=== PATIENT | female | born 1985 | race Two or more races ===

== ENCOUNTER 2021-02-01 10:41 | Day surgery (SDC) | payer OTHER ==
[~2021-02-01] VITALS: Ht 162.6 cm; Wt 63.6 kg
[~2021-02-01 10:41] MED LIST: ALBU90OI INH; AMOX500 PO; AZIT250 PO; Bactrim Ds Tab1 EACH PO; Cleocin HCl150 MG PO; Cleocin HCl300 MG PO; HYDACE5 PO; HYDGUAL120 PO; Norco 5-325 Ta1 EACH PO; ONDA4 PO; PROM25 PO; RXLORA1 PO; TRAM50 PO
--- NOTE | 2021-02-01 11:13 | NUR ---
PT ESCORTED INTO SDS VIA WC. History, Chart, Medications and Allergies reviewed before start of procedure. Lungs clear T/O to Auscultation. Patient confirms NPO status and agrees with scheduled surgery. Pre-Op teaching done. Pt verbalizes understanding. Patient States Post-Procedure ride home has been arranged.
--- NOTE | 2021-02-01 14:58 | NUR ---
Dressing to procedure site clean, dry, intact with no visible drainage, swelling, erythema or bruising noted.
--- NOTE | 2021-02-01 15:14 | NUR ---
Dressing to procedure site clean, dry, intact with no visible drainage, swelling, erythema or bruising noted. Discharge instructions reviewed with patient. Patient verbalizes understanding. Copy given to patient to take home.
--- NOTE | 2021-02-04 14:25 | NUR ---
02/04/21 1425 Carmen Carballo VERIFICATIONS: EDIT CHART.
== END 2021-02-01 15:41 | disposition home or self-care (01) ==
LOC: ORSCMMR 10:41
PROVIDERS: Orthopaedic Surgery
PROC: 0QSK04Z Reposition Left Fibula with Internal Fixation Device, Open Approach (ICD-10-PCS; principal; 2021-02-01 12:00)
DX: S82.62XA Displaced fracture of lateral malleolus of left fibula, initial encounter for closed fracture (principal); F17.210 Nicotine dependence, cigarettes, uncomplicated
CPT/HCPCS: A9270; C1713; J0690; J1100; J1885; J2250; J2405; J2704; J2795; J3010; J7120

== ENCOUNTER 2021-02-14 10:29 | Emergency (ER) | payer OTHER ==
[~2021-02-14] VITALS: Ht 162.6 cm; Wt 63.5 kg
[2021-02-14] MEDS ORDERED: CEPH500 PO (11:32)
== END 2021-02-14 12:08 | disposition home or self-care (01) ==
LOC: ER 10:29
DX: L03.116 Cellulitis of left lower limb (principal); R60.0 Localized edema; Z88.2 Allergy status to sulfonamides; Z98.890 Other specified postprocedural states
CPT/HCPCS: 93971; 99283-25

== ENCOUNTER 2021-12-05 23:56 | Emergency (ER) | payer OTHER ==
[~2021-12-05] VITALS: Ht 162.6 cm; Wt 64.0 kg
[~2021-12-05 23:56] MED LIST changes: +CEPH500 PO
== END 2021-12-06 01:51 | disposition home or self-care (01) ==
LOC: ER 23:56
DX: S20.212A Contusion of left front wall of thorax, initial encounter (principal); Y04.0XXA Assault by unarmed brawl or fight, initial encounter; J45.998 Other asthma; Z87.891 Personal history of nicotine dependence; Z88.2 Allergy status to sulfonamides
CPT/HCPCS: 71046; 99283-25